=== PATIENT | male | born 1985 | race African-American/Black ===

== ENCOUNTER 2024-09-05 07:47 | Inpatient (IN) ==
--- NOTE | 2024-09-05 08:05 | Emergency Department Note ---
Impression & Plan Acute hypoxic respiratory failure, Asthma exacerbation, Rhinovirus ED Provider Note NAME: JOSESITO CALL AGE: 39 SEX: M : 1985 ARRIVES VIA: Walk-In INFORMANT: Patient ED PROVIDER(S): Erik Suarez DO CHIEF COMPLAINT: Short of breath HPI: Patient is a 39-year-old male who presents to the ER for shortness of breath. Symptoms started yesterday and have been getting worse. He has a history of asthma. He believes it is secondary to exposure to cats. He does admit to cough and congestion. Denies any belly pain, nausea, vomiting, or diarrhea. No chest pain. No dysuria, urgency, or frequency. No other exacerbating or remitting factors. ADDITIONAL HISTORY OBTAINED: Per HPI Chronic Medical/Social Conditions Affecting Care: Per HPI PAST MEDICAL HISTORY:See Below PAST SURGICAL HISTORY:See Below FAMILY HISTORY:See Below SOCIAL HISTORY:See Below HOME MEDICATIONS:See Below ALLERGIES:See Below VITALS:See Below PHYSICAL EXAMINATION: GENERAL: Sitting up in bed, alert, ill-appearing, moderate distress only able to talk in one-word sentences EYE EXAM: normal conjunctiva. PERRL and EOM's grossly intact. OROPHARYNX: mucous membranes are moist NECK: supple, no nuchal rigidity, no adenopathy, non-tender LUNGS: Diffuse wheezing bilaterally. Normal chest wall mechanics HEART: no murmurs, S1 normal and S2 normal ABDOMEN: abdomen soft, non-tender, normo-active bowel sounds, no masses, no rebound or guarding. UPPER EXTREMITIES: upper extremities are grossly normal. LOWER EXTREMITIES: No pitting edema. Calves are equal bilateral NEURO EXAM: Normal sensorium, cranial nerves II-XII grossly intact, normal speech, no gross weakness of arms, no gross weakness of legs. MEDICAL DECISION MAKING: Patient is a 39-year-old male who presents to the ER for the specific complaints. IV was established and blood work was obtained. Labs show no significant leukocytosis. No anemia. BMP along with LFTs bilirubin was unremarkable. Lipase was normal. Viral panel was positive for enterovirus. Patient upon arrival did have diffuse wheezing and poor air movement. He could only speak in 1 word sentence. Patient was given an hour-long DuoNeb and switched to an hour-long albuterol. Was given steroids. Had significant improvement and was able to talk full sentences. Was hypoxic initially and did require 2 L persistently. Patient was updated bedside discussed with the hospitalist admitted for further workup. Consults/Care Managements Discussions: Per MDM Triage Nursing notes reviewed. Limited review of prior medical records performed Vital Signs: reviewed and remarkable for HTN, tachy, hypoxic Differential diagnosis: Differential diagnoses includes but is not limited to pneumonia, bronchitis, COPD/Asthma exacerbation, pneumothorax, pulmonary embolism, congestive heart failure, acute coronary syndrome ER treatment provided: See below Diagnostics interpreted by me include EKG and cardiac monitoring as listed below: -Cardiac Monitoring: An order was placed for continuous cardiac monitoring. The monitor shows a rate of 120 with sinus rhythm. -ECG: Sinus tachycardia rate of 127 Normal axis No PVCs QTc 424 -Laboratory studies:Interpreted by me as stated above in MDM and shown below. Imaging studies: Xrays: As interpreted by me: Portable AP upright 1 view of the chest shows no focal infiltrate CTs show: none Procedures:none Critical Care: I have personally spent 35 minutes of critical care time in the direct management of this patient. This includes bedside care, interpretation of diagnostic studies, and testing, discussion with consultants, patient, and family members, and other required patient management activities. This 35 minutes is in excess of all separately billable procedures. Past Med/Surg History Problem List (Updated 09/05/24 @ 13:31 by Erik Suarez DO) Rhinovirus (Acute) Acute hypoxic respiratory failure (Acute) Hypoxia Tobacco use Upper respiratory infection, viral Asthma exacerbation (Acute) Medical History (Updated 09/05/24 @ 13:31 by Erik Suarez DO) Asthma Pneumonia Family History (Updated 09/05/24 @ 10:41 by MILTON Galicia) Mother Breast cancer Father Alzheimer disease Social History (Updated 09/05/24 @ 10:42 by MILTON Galicia) Smoking Status: Current every day smoker Tobacco Type: Cigarettes Cigarettes Per Day: 3; Hx Alcohol Use: Yes Hx Substance Use: No Preferred Language: Yi current occupational status: employed Feels Safe at Home: Yes Allergies Allergies Allergy/AdvReac Type Severity Reaction Status Date / Time iodine Allergy Intermediate Unknown Verified 09/05/24 11:47 shellfish derived Allergy Intermediate Unknown Verified 09/05/24 11:48 Home Meds Home Medications Medication Instructions Recorded Confirmed acetaminophen 500 mg tablet 1,000 mg PO Q6H PRN Pain 05/16/18 09/05/24 (Tylenol Extra Strength) Results & Data (ED) Vital Signs Vital Signs - 24 hr 09/05/24 07:49 09/05/24 07:55 09/05/24 08:04 Temperature 36.7 C Temperature Source Temporal Artery Scan Pulse Rate 129 H Pulse Rate [Apical] Pulse Rate from SpO2 Sensor Respiratory Rate 24 Respiratory Effort / Characteristics Short of Breath Spontaneous Labored Short of Breath Blood Pressure 158/115 H 151/125 H Blood Pressure Mean 129 130 Pulse Oximetry 87 L Oxygen Delivery Method Room Air Oxygen Flow Rate Sepsis Recent Fever Within 48 Hours No Sepsis New/Unexplained Change in Mental Status N/A Sepsis Action Taken by Nursing No Action Required Oxygen Flow Rate - Titration Pulse Oximetry Post Tiitration 09/05/24 08:06 09/05/24 08:30 09/05/24 08:36 Temperature Temperature Source Pulse Rate 127 H 117 H Pulse Rate [Apical] Pulse Rate from SpO2 Sensor 118 H Respiratory Rate 26 H 29 H Respiratory Effort / Characteristics Blood Pressure 141/110 H Blood Pressure Mean 119 Pulse Oximetry 96 Oxygen Delivery Method Nebulizer Oxygen Flow Rate Sepsis Recent Fever Within 48 Hours Sepsis New/Unexplained Change in Mental Status Sepsis Action Taken by Nursing Oxygen Flow Rate - Titration Pulse Oximetry Post Tiitration 09/05/24 08:53 09/05/24 09:00 09/05/24 09:03 Temperature Temperature Source Pulse Rate 123 H 119 H Pulse Rate [Apical] Pulse Rate from SpO2 Sensor 119 H Respiratory Rate 22 Respiratory Effort / Characteristics Blood Pressure 127/98 Blood Pressure Mean 110 Pulse Oximetry 97 Oxygen Delivery Method Nebulizer Oxygen Flow Rate Sepsis Recent Fever Within 48 Hours Sepsis New/Unexplained Change in Mental Status Sepsis Action Taken by Nursing Oxygen Flow Rate - Titration Pulse Oximetry Post Tiitration 09/05/24 09:12 09/05/24 09:20 09/05/24 09:49 Temperature Temperature Source Pulse Rate 126 H Pulse Rate [Apical] 118 H Pulse Rate from SpO2 Sensor 126 H Respiratory Rate 22 22 Respiratory Effort / Characteristics Spontaneous Blood Pressure Blood Pressure Mean Pulse Oximetry 92 88 L 92 Oxygen Delivery Method Room Air Room Air Nasal Cannula Oxygen Flow Rate 3 Sepsis Recent Fever Within 48 Hours Sepsis New/Unexplained Change in Mental Status Sepsis Action Taken by Nursing Oxygen Flow Rate - Titration 2 Pulse Oximetry Post Tiitration 92 Laboratory Data 09/05/24 08:15 09/05/24 08:15 Lab Results 09/05/24 09/05/24 Range/Units 08:15 08:45 WBC 12.38 H (4.8-10.8) K/ul RBC 4.52 L (4.70-6.10) M/uL Hgb 13.2 L (14.0-18.0) g/dl Hct 39.5 L (42.0-52.0) % MCV 87.4 (80.0-100.0) fL MCH 29.2 (25.0-34.0) pg MCHC 33.4 (32.0-36.0) g/dL RDW Std Deviation 45.4 (36.4-46.3) fL RDW Coeff of Syed 14.2 (11.5-14.5) % Plt Count 385 (130-400) K/uL MPV 8.6 L (9.4-12.4) fL Immature Gran % (Auto) 0.3 % Neut % (Auto) 80.8 % Lymph % (Auto) 11.6 % Hoke % (Auto) 5.3 % Eos % (Auto) 1.5 % Baso % (Auto) 0.5 % Neut # (Auto) 10.00 H (1.40-6.50) K/uL Lymph # (Auto) 1.44 (1.20-3.40) K/uL Hoke # (Auto) 0.66 H (0.11-0.59) K/uL Eos # (Auto) 0.18 (0.00-0.50) K/uL Baso # (Auto) 0.06 (0.00-0.20) K/uL Immature Gran # (Auto) 0.04 (0.01-0.20) K/uL Sodium 137 (136-145) mmol/L Potassium 4.3 (3.5-5.1) mmol/L Chloride 100 (98-107) mmol/L Carbon Dioxide 32 (21-32) mmol/L Anion Gap 5 (3-11) BUN 11 (6-23) mg/dl Creatinine 0.94 (0.6-1.4) mg/dl Est Cr Clr Drug Dosing Not Reportable eGFR 105.10 BUN/Creatinine Ratio 11.7 (10-20) Glucose 119 H (70-99(Fasting)) mg/dl Calcium 9.5 (8.6-10.3) mg/dl Total Bilirubin 0.4 (0.2-1.0) mg/dl AST 23 (13-39) U/L ALT 18 (7-52) U/L Alkaline Phosphatase 69 (34-104) U/L Troponin I High Sens 3.9 (0-20) pg/ml Total Protein 8.7 H (6.0-8.3) gm/dl Albumin 4.5 (3.4-5.0) gm/dl Globulin 4.2 H (2.5-4.0) gm/dl Albumin/Globulin Ratio 1.1 (0.9-2) Lipase 8 L (11-82) U/L Adenovirus (PCR) Not Detected (NotDetected) B. pertussis DNA (PCR) Not Detected (NotDetected) B.parapertussis DNA PCR Not Detected (NotDetected) C. pneumoniae DNA (PCR) Not Detected (NotDetected) Coronavirus OC43 (PCR) Not Detected (NotDetected) Coronavirus HKU1 (PCR) Not Detected (NotDetected) Coronavirus 229E (PCR) Not Detected (NotDetected) SARS-CoV-2 (PCR) Not Detected (NotDetected) Coronavirus NL63 (PCR) Not Detected (NotDetected) Human Metapneumovir PCR Not Detected (NotDetected) Influenza Type A (PCR) Not Detected (NotDetected) Influenza Type B (PCR) Not Detected (NotDetected) M. pneumoniae (PCR) Not Detected (NotDetected) Parainfluenza 1 (PCR) Not Detected (NotDetected) Parainfluenza 2 (PCR) Not Detected (NotDetected) Parainfluenza 3 (PCR) Not Detected (NotDetected) Parainfluenza 4 (PCR) Not Detected (NotDetected) RSV (PCR) Not Detected (NotDetected) Entero/Rhino (PCR) DETECTED A (NotDetected) Administered Medications Albuterol (Albut/Ipratrop 3mg/0.5mg Neb 3 Ml Vial) 3 ml NEB Q6R [facility]; Protocol Stop: 10/05/24 12:59 Last Admin: 09/05/24 12:38 Dose: 3 ml Documented By: AA Discontinued Medications Albuterol (Albut/Ipratrop 3mg/0.5mg Neb 3 Ml Vial) 9 ml NEB NOW STA; Protocol Stop: 09/05/24 08:03 Last Admin: 09/05/24 08:14 Dose: 9 ml Documented By: HECTOR Albuterol (Albuterol 0.083% Nebu Soln 3 Ml Vial) 10 mg NEB NOW STA; Protocol Stop: 09/05/24 09:35 Last Admin: 09/05/24 09:48 Dose: 10 mg Documented By: DANIEL Ioversol (Optiray 320 125ml) 112 ml IV ONCE ONE Stop: 09/05/24 10:24 Last Admin: 09/05/24 10:23 Dose: 112 ml Documented By: SHEA Methylprednisolone (Methylprednisolone 125 Mg/2 Ml Vial) 40 mg IV NOW STA Stop: 09/05/24 08:03 Last Admin: 09/05/24 08:15 Dose: 40 mg Documented By: HECTOR Imaging Data Radiologist's Impression: Chest X-Ray 09/05/24 08:02 XR chest 1V portable CLINICAL HISTORY: Chest pain, nonspecific COMPARISON STUDY: 05/16/2018 FINDINGS: Heart size and pulmonary vasculature are normal. No effusion, consolidation, or pneumothorax. IMPRESSION: No acute findings. ACT 112: Negative or not required by law. Electronically signed by: Getachew Campos M.D. 09/05/2024 9:00 AM Chest CTA 09/05/24 10:19 CT angio chest PE protocol CT DOSE: 1083.4 mGy.cm HISTORY: 39 years-old Male with PE. Acute shortness of breath with asthma TECHNIQUE: Multiple CTA images of the chest were obtained after the intravenous administration of 112 ml Optiray. Coronal and sagittal MIPS were obtained from the axial data set and were submitted for review. All measurements were obtained according to NASCET criteria. A dose lowering technique was utilized adhering to the principles of ALARA. COMPARISON: 05/16/2018 FINDINGS: CTA: Heart is normal in size. No pericardial effusion. Unremarkable thoracic aorta. There is suboptimal evaluation of the pulmonary arterial tree secondary to contrast bolus timing. No central pulmonary emboli identified. CT CHEST: No dominant thyroid nodule is seen. There are a few borderline-enlarged mediastinal and hilar lymph nodes including a 12 mm AP window lymph node on image 24 and a right hilar lymph node measuring 1.3 cm on image 173. Mild nonspecific bronchial wall thickening with a degree of bibasilar mucous plugging. There is a stable likely benign 3 mm subpleural nodular focus in the right lower lobe on image 139. A few additional scattered low suspicion. 2 to 3 mm nodular foci the lungs are stable and benign. There is no pneumothorax, pleural effusion or focal airspace consolidation. The imaged upper abdominal structures are normal. Probable hepatic steatosis. The osseous structures appear intact. IMPRESSION: 1. Limited study secondary to contrast bolus timing. No central pulmonary emboli identified. 2. No pleural effusion or airspace consolidation typical for pneumonia. 3. Mild nonspecific mediastinal and hilar lymphadenopathy. 4. Bronchial wall thickening with mild bibasilar plugging. ACT 112: Negative or not required by law. The above report was generated using voice recognition software. It may contain grammatical, syntax or spelling errors. Electronically signed by: Pawel Garvey M.D. 09/05/2024 12:42 PM Discharge Plan Visit Data Chief Complaint: Shortness of Breath/Dyspnea Stated Complaint: TROUBLE BREATHING/WALKING ED Provider: Erik Suarez Discharge Problem: Acute hypoxic respiratory failure, Asthma exacerbation, Rhinovirus Patient Disposition: Admitted As Inpatient Discharge Instructions Interventions: ED Discharge Assessment Last Done: 09/05/24 11:44 Discharge Problem: Asthma exacerbation Qualifiers: Asthma severity: unspecified severity Asthma persistence: unspecified Qualified Code(s): J45.901 - Unspecified asthma with (acute) exacerbation
[2024-09-05] MEDS: ALBUT/IPRATROP 3MG/0.5MG NEB 3 ML VIAL NEB STA (08:14)
[2024-09-05] MEDS: methylPREDNISolone 125 MG/2 ML VIAL IV STA (08:15)
[2024-09-05 08:54] LABS: Basophils # (auto) 0.06 K/uL (0.00-0.20); Basophils % (auto) 0.5 %; Eosinophils # (auto) 0.18 K/uL (0.00-0.50); Eosinophils % (auto) 1.5 %; Hematocrit (blood only) 39.5 % (42.0-52.0); Hemoglobin 13.2 g/dl (14.0-18.0); Immature Granulocytes # (auto) 0.04 K/uL (0.01-0.20); Immature Granulocytes % (auto) 0.3 %; Lymphocytes # (auto) 1.44 K/uL (1.20-3.40); Lymphocytes % (auto) 11.6 %; Mean Corpuscular Hemoglobin 29.2 pg (25.0-34.0); Mean Corpuscular Hgb Conc 33.4 g/dL (32.0-36.0); Mean Corpuscular Volume 87.4 fL (80.0-100.0); Mean Platelet Volume 8.6 fL (9.4-12.4); Monocytes # (auto) 0.66 K/uL (0.11-0.59); Monocytes % (auto) 5.3 %; Neutrophils % (auto) 80.8 %; Platelet Count 385 K/uL (130-400); RDW Coefficient of Variation 14.2 % (11.5-14.5); RDW Standard Deviation 45.4 fL (36.4-46.3); Red Blood Count 4.52 M/uL (4.70-6.10); White Blood Count 12.38 K/ul (4.8-10.8)
--- NOTE | 2024-09-05 09:01 | XRay Report ---
XR chest 1V portable CLINICAL HISTORY: Chest pain, nonspecific COMPARISON STUDY: 05/16/2018 FINDINGS: Heart size and pulmonary vasculature are normal. No effusion, consolidation, or pneumothora x. IMPRESSION: No acute findings. ACT 112: Negative or not required by law. Electronically signed by: Getachew Campos M.D. 09/05/2024 9:00 AM
[2024-09-05 09:13] LABS: Alanine Aminotransferase 18 U/L (7-52); Albumin Globulin Ratio 1.1 (0.9-2); Albumin Level 4.5 gm/dl (3.4-5.0); Alkaline Phosphatase 69 U/L (34-104); Anion Gap 5 (3-11); Aspartate Aminotransferase 23 U/L (13-39); BUN Creatinine Ratio 11.7 (10-20); Bilirubin,Total 0.4 mg/dl (0.2-1.0); Blood Urea Nitrogen 11 mg/dl (6-23); Calcium 9.5 mg/dl (8.6-10.3); Carbon Dioxide 32 mmol/L (21-32); Chloride 100 mmol/L (98-107); Globulin 4.2 gm/dl (2.5-4.0); Glucose 119 mg/dl (70-99(Fasting)); Lipase 8 U/L (11-82); Potassium 4.3 mmol/L (3.5-5.1); Sodium 137 mmol/L (136-145); Total Protein 8.7 gm/dl (6.0-8.3)
[2024-09-05 09:18] LABS: Troponin I High Sensitivity 3.9 pg/ml (0-20)
[2024-09-05] MEDS: ALBUTEROL 0.083% NEBU SOLN 3 ML VIAL NEB STA (09:48)
[2024-09-05 10:05] LABS: Adenovirus PCR Not Detected (NotDetected); Bordetella parapertussis PCR Not Detected (NotDetected); Bordetella pertussis PCR Not Detected (NotDetected); Chlamydia pneumoniae PCR Not Detected (NotDetected); Coronavirus 229E PCR Not Detected (NotDetected); Coronavirus CoV-2 (COVID19)PCR Not Detected (NotDetected); Coronavirus HKU1 PCR Not Detected (NotDetected); Coronavirus NL63 PCR Not Detected (NotDetected); Coronavirus OC43PCR Not Detected (NotDetected); Human Metapneumovirus PCR Not Detected (NotDetected); Influenza A PCR Not Detected (NotDetected); Influenza B PCR Not Detected (NotDetected); Mycoplasma pneumoniae PCR Not Detected (NotDetected); Parainfluenza Virus 1 PCR Not Detected (NotDetected); Parainfluenza Virus 2 PCR Not Detected (NotDetected); Parainfluenza Virus 3 PCR Not Detected (NotDetected); Parainfluenza Virus 4 PCR Not Detected (NotDetected); Respiratory Syncytial VirusPCR Not Detected (NotDetected); Rhinovirus/Enterovirus PCR DETECTED (NotDetected)
--- NOTE | 2024-09-05 10:12 | History & Physical Report ---
<Statement entered by Giorgio West DO - 09/05/24 12:57> I have seen and examined the patient and have discussed the case with the advance practice provider. I have reviewed the advanced practitioner's documentation, and I agree with, and take responsibility for that plan of care. Patient still in the ED when evaluated, significant other at bedside. Patient states that he has a remote history of asthma as a child. Does not have any significant symptoms with asthma recently. Does not carry on a rescue inhaler. Just had an upper respiratory infection a few weeks ago and did not have any issues with wheezing or chest tightness. Has not needed inhalers for a few years. Lungs decreased breath sounds, poor airflow, diffuse tight wheezes throughout with some coarse rhonchi. Patient with acute onset of pleuritic chest pain, shortness of breath, hypoxia and tachycardic in the setting of rhinovirus bronchitis and remote history of asthma. High suspicion for possible PE due to the fact that he has pleuritic pain and he has not had significant issues with his asthma in the past few years. Proceed with CTA of the chest Reviewed CTA report, negative for PE Continue with treatment for rhinovirus bronchitis with bronchospasm/exacerbation of asthma. Discussed plan of care as outlined below I spent a total of 21 minutes coordinating, documenting, and providing care for this patient excluding time spent by another provider/QHP. Date of Service September 05, 2024 Assessment & Plan (1) Hypoxia: (2) Asthma exacerbation: (3) Upper respiratory infection, viral: (4) Tobacco use: Plan 39 year old male with PMH of childhood asthma and current tobacco use who presented to the ED today with SOB. Hypoxia Asthma exacerbation secondary to viral URI Initial O2 sats 87% on RA Biofire positive for entero/rhinovirus CXR negative Slight leukocytosis at 12.3 CT angio PE negative Plan -Continue O2 as needed to maintain sats >92% -Duonebs q6hr scheduled -Albuterol nebs q2hr PRN for SOB -Mucinex, tessalon perle, hycodan PRN for cough Tobacco use Declined nicotine patch Counseled on smoking cessation DVT Prophylaxis: TEDs Code Status: FULL CODE - As per discussion at bedside with the patient. PCP: Dr Janice Blackman DO Disposition: admit to med/surg with tele Patient seen in collaboration with Dr West. Please see addendum. I spent a total of 60 minutes coordinating, documenting and providing care for this patient excluding time spent in the performance of separately billed services or time spent by another provider/QHP. Admission and Anticipated Discharge Date Admission Date: 09/05/2024 History of Present Illness Chief Complaint: SOB Primary Care Provider: Dr Janice Blackman DO 39 year old male with PMH of asthma in childhood and current tobacco use who presented to the ED today with SOB. He reports that he started to have profound SOB late in the day yesterday where he could barely stand or walk. He reports pleuritic chest pain and orthopnea where he sat upright in bed most of the night and couldn't sleep. He notes it took everything out of him to walk to the bathroom and back to bed. He reports a slightly productive cough with green sputum that also started yesterday but denies fevers, chills, runny nose, sore throat, abdominal pain, N/V/D, calf tenderness. 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 His girlfriend has a cat but he has never had issues being around the cat and he has hardly been outside due to the rainy weather. He reports no family history of any heart, lung, or bleeding/clotting disorders. He notes that he had asthma as a child but this has not been a problem for him in many years. He does not carry an inhaler and does not take any medications on a regular basis. He smokes cigarettes but is currently cutting back and is down to approximately 3 cigarettes per day. He consumes alcohol socially about once a week and denies any drug use. Allergies Allergy/AdvReac Type Severity Reaction Status Date / Time iodine Allergy Intermediate Unknown Verified 09/05/24 11:47 shellfish derived Allergy Intermediate Unknown Verified 09/05/24 11:48 Home Medications Medication Instructions Recorded Confirmed Type acetaminophen 500 mg tablet 1,000 mg PO Q6H PRN Pain 05/16/18 09/05/24 History (Tylenol Extra Strength) Past Med/Surg History Problem List (Updated 09/05/24 @ 10:40 by MILTON Galicia) Hypoxia Tobacco use Upper respiratory infection, viral Asthma exacerbation Medical History (Updated 09/05/24 @ 10:40 by MILTON Galicia) Asthma Pneumonia Family History (Updated 09/05/24 @ 10:41 by MILTON Galicia) Mother Breast cancer Father Alzheimer disease Social History (Updated 09/05/24 @ 10:42 by MILTON Galicia) Smoking Status: Current every day smoker Tobacco Type: Cigarettes Cigarettes Per Day: 3; Hx Alcohol Use: Yes Hx Substance Use: No Preferred Language: Maori current occupational status: employed Feels Safe at Home: Yes Review of Systems Review of Systems: All systems reviewed & are unremarkable except as noted in HPI & below Physical Exam Physical Exam: General/Psych: WD/WN, sitting up in bed, NAD, conversing with nebulized mask running, euthymic affect Head: normocephalic, atraumatic Eyes: normal inspection, PERRL, conjunctivae pink, anicteric sclerae ENT: external ear and nose normal, oropharynx normal Neck: normal visual inspection, trachea midline, no thyromegaly Respiratory: diminished lung sounds, bilateral inspiratory and expiratory wheeze s Cardiovascular: regular rate and rhythm, no murmur/rub/gallop, no JVD Extremities: no cyanosis or clubbing, normal peripheral pulses, no BLE edema Abdomen/GI: normal bowel sounds, soft, nontender, no hepatosplenomegaly Neurologic/MSK: A+Ox3, motor strength 5/5, moves all extremities Skin: no rashes, normal color, warm and dry Results & Data Results & Data Vital Signs (Past 12 Hours) Vital Signs Temp Pulse Pulse Resp BP Pulse Ox O2 Del Method 09/05/24 09:49 118 H 22 92 Nasal Cannula 09/05/24 09:20 88 L Room Air 09/05/24 09:12 126 H 22 92 Room Air 09/05/24 09:03 119 H 22 97 Nebulizer 09/05/24 09:00 127/98 09/05/24 08:53 123 H 09/05/24 08:36 117 H 29 H 96 Nebulizer 09/05/24 08:30 141/110 H 09/05/24 08:06 127 H 26 H 09/05/24 08:04 151/125 H 09/05/24 07:49 36.7 C 129 H 24 158/115 H 87 L Room Air O2 Flow Rate 09/05/24 09:49 3 09/05/24 09:20 09/05/24 09:12 09/05/24 09:03 04/15/25 09:00 09/05/24 08:53 09/05/24 08:36 09/05/24 08:30 09/05/24 08:06 09/05/24 08:04 09/05/24 07:49 Laboratory Results Short CBC 09/05/24 Range/Units 08:15 WBC 12.38 H (4.8-10.8) K/ul Hgb 13.2 L (14.0-18.0) g/dl Hct 39.5 L (42.0-52.0) % Plt Count 385 (130-400) K/uL BMP 09/05/24 08:15 Sodium 137 Potassium 4.3 Chloride 100 Carbon Dioxide 32 BUN 11 Creatinine 0.94 Glucose 119 H Calcium 9.5 Liver Function 09/05/24 Range/Units 08:15 Total Bilirubin 0.4 (0.2-1.0) mg/dl AST 23 (13-39) U/L ALT 18 (7-52) U/L Alkaline Phosphatase 69 (34-104) U/L Albumin 4.5 (3.4-5.0) gm/dl I have independently reviewed and interpreted patient's admitting labs including CBC, CMP, and troponin. Diagnostic Findings Chest X-Ray 09/05/24 08:02 XR chest 1V portable CLINICAL HISTORY: Chest pain, nonspecific COMPARISON STUDY: 05/16/2018 FINDINGS: Heart size and pulmonary vasculature are normal. No effusion, consolidation, or pneumothorax. IMPRESSION: No acute findings. ACT 112: Negative or not required by law. Electronically signed by: Getachew Campos M.D. 09/05/2024 9:00 AM
[2024-09-05] MEDS: OPTIRAY 320 125ml IV ONE (10:23)
[2024-09-05] MEDS ORDERED: IBUPROFEN 600 MG TAB PO PRN (11:38)
[2024-09-05] MEDS ORDERED: ACETAMINOPHEN 325 MG TAB PO PRN (11:43)
[2024-09-05] MEDS ORDERED: ALBUTEROL 0.5% NEB SOLN 2.5 MG/0.5 ML VIAL NEB PRN (11:43)
[2024-09-05] MEDS ORDERED: guaiFENesin 600 MG TABCR PO PRN (11:43)
[2024-09-05] MEDS ORDERED: HYDROcodone/HOMATROPINE SYRUP 5MG/1.5MG 5ML UDP PO PRN (11:43)
--- NOTE | 2024-09-05 11:48 | Electrocardiogram Report ---
Test Reason : Blood Pressure : */* mmHG Vent. Rate : 127 BPM Atrial Rate : 127 BPM P-R Int : 134 ms QRS Dur : 74 ms QT Int : 292 ms P-R-T Axes : 83 0 84 degrees QTcB Int : 424 ms Sinus tachycardia Biatrial enlargement Abnormal ECG When compared with ECG of 16-May-2018 00:47, No significant change was found Confirmed by Feroz Bloom ([id number]) on 09/05/2024 11:47:56 AM Referred By: Confirmed By: Feroz Bloom
[2024-09-05] MEDS: ALBUT/IPRATROP 3MG/0.5MG NEB 3 ML VIAL NEB SCH (12:38)
--- NOTE | 2024-09-05 12:44 | CT Scan Report ---
CT angio chest PE protocol CT DOSE: 1083.4 mGy.cm HISTORY: 39 years-old Male with PE. Acute shortness of breath with asthma TECHNIQUE: Multiple CTA images of the chest were obtained after the intravenous administration of 112 ml Optiray. Coronal and sagittal MIPS were obtained from the axial data set and were submitted for review. All measurements were obtained according to NASCET criteria. A dose lowering technique was u tilized adhering to the principles of ALARA. COMPARISON: 05/16/2018 FINDINGS: CTA: Heart is normal in size. No pericardial effusion. Unremarkable thoracic aorta. There is suboptimal ev aluation of the pulmonary arterial tree secondary to contrast bolus timing. No central pulmonary embo li identified. CT CHEST: No dominant thyroid nodule is seen. There are a few borderline-enlarged mediastinal and hilar lymph n odes including a 12 mm AP window lymph node on image 24 and a right hilar lymph node measuring 1.3 cm on image 173. Mild nonspecific bronchial wall thickening with a degree of bibasilar mucous plugging. There is a stable likely benign 3 mm subpleural nodular focus in the right lower lobe on image 139. A few additional scattered low suspicion. 2 to 3 mm nodular foci the lungs are stable and benign. The re is no pneumothorax, pleural effusion or focal airspace consolidation. The imaged upper abdominal structures are normal. Probable hepatic steatosis. The osseous structures appear intact. IMPRESSION: 1. Limited study secondary to contrast bolus timing. No central pulmonary emboli identified. 2. No pleural effusion or airspace consolidation typical for pneumonia. 3. Mild nonspecific mediastinal and hilar lymphadenopathy. 4. Bronchial wall thickening with mild bibasilar plugging. ACT 112: Negative or not required by law. The above report was generated using voice recognition software. It may contain grammatical, syntax o r spelling errors. Electronically signed by: Pawel Garvey M.D. 09/05/2024 12:42 PM
[2024-09-05] MEDS: BENZONATATE 100 MG CAPSULE PO PRN (20:59)
[2024-09-06 05:14] LABS: Hematocrit (blood only) 35.2 % (42.0-52.0); Hemoglobin 11.9 g/dl (14.0-18.0); Mean Corpuscular Hemoglobin 29.9 pg (25.0-34.0); Mean Corpuscular Hgb Conc 33.8 g/dL (32.0-36.0); Mean Corpuscular Volume 88.4 fL (80.0-100.0); Mean Platelet Volume 8.6 fL (9.4-12.4); Platelet Count 352 K/uL (130-400); RDW Coefficient of Variation 14.5 % (11.5-14.5); RDW Standard Deviation 46.8 fL (36.4-46.3); Red Blood Count 3.98 M/uL (4.70-6.10); White Blood Count 7.93 K/ul (4.8-10.8)
[2024-09-06 05:35] LABS: Potassium 3.7 mmol/L (3.5-5.1)
[2024-09-06 05:41] LABS: BUN Creatinine Ratio 13.6 (10-20); Creatinine Clr Calc Pharmacy 152.4 ml/min
[2024-09-06] MEDS: predniSONE 50 MG TAB PO SCH (08:40)
[2024-09-06] MEDS ORDERED: LEVALBUTEROL HCL 0.63 MG/3 ML NEB NEB PRN (13:15)
--- NOTE | 2024-09-06 13:25 | Hospitalist Progress Note ---
Date of Service September 06, 2024 Assessment & Plan (1) Acute hypoxic respiratory failure: (2) Asthma exacerbation: (3) Upper respiratory infection, viral: (4) Tobacco use: Plan 39 year old male with PMH of childhood asthma and current tobacco use who presented to the ED today with SOB. Acute respiratory failure with hypoxia 2/2 rhinovirus Asthma exacerbation with acute bronchitis secondary to viral URI Initial O2 sats 87% on RA Biofire positive for entero/rhinovirus CXR negative Slight leukocytosis at 12.3 CT angio PE negative, consistent with acute bronchitis Start prednisone 50mg daily x 5 days Switch to levalbuterol given tachycardia continue pulm toilet with muccinex, flutter valve, incentive spirometry Wean off O2 as able, goal O2 > 92% Sinus Tachycardia Suspect in setting of underlying illness, will trial switching from albuterol to levalbuterol monitor Tobacco use Declined nicotine patch Counseled on smoking cessation Hyperglycemia random bsg 160, will obtain a1c in a.m. likely in setting of steroids day prior DVT Prophylaxis: TEDs Code Status: FULL CODE - As per discussion at bedside with the patient. PCP: Dr Janice Blackman DO Disposition: admit to med/surg with tele, if pt remains stable can downgrade to medical tomorrow, pt not yet medically stable for discharge as he is still requiring oxygen I spent a total of 51 minutes coordinating, documenting and providing care for this patient excluding time spent in the performance of separately billed services or time spent by another provider/QHP. Admission and Anticipated Discharge Date Admission Date: September 05, 2024 Subjective Pt seen and examined in ED C12 as overnight hold. He continues to feel SOB, mostly with exertion. He is coughing, but now able to expectorate. He reports having allergies and he feels his sx are related to that along with the virus. He denies f/c/s, chest pain, n/v/d. He is tolerating diet. He reports intermittent smoking and states he will now be quitting after this. Review of Systems Review of Systems: All systems reviewed & are unremarkable except as noted in HPI & below Physical Exam Physical Exam: Gen: WD/WN, M, sitting up in bed, appears comfortable, NAD, A&O x3 HEENT: Normocephalic, atraumatic, conjunctivae moist, sclerae anicteric, mucous membranes moist. Lung: Clear to Auscultation bilaterally, with diffuse wheezing throughout, no rales/rhonchi, saturating 91% on RA at rest Heart: tachycardic rate, regular rhythm, no murmurs, rubs, or gallops Abdomen: Soft, NT, ND +BS x 4 Extremities: No edema Skin: Warm, no rash, negative turgor. Results & Data Results & Data Vital Signs (Past 12 Hours) Vital Signs Temp Pulse Pulse Resp BP Pulse Ox Pulse Ox 09/06/24 13:02 124 H 20 91 09/06/24 11:59 110 H 22 135/96 94 09/06/24 08:00 36.9 C 105 H 20 139/99 95 09/06/24 07:09 84 09/06/24 06:50 79 18 95 09/06/24 06:43 93 H 15 144/87 H 96 09/06/24 03:10 36.6 C 104 H 18 131/98 96 09/06/24 03:10 95 O2 Del Method O2 Del Method O2 Flow Rate O2 Flow Rate 09/06/24 13:02 Nasal Cannula 1 09/06/24 11:59 Nasal Cannula 2 09/06/24 08:00 Nasal Cannula 2 09/06/24 07:09 09/06/24 06:50 Room Air 09/06/24 06:43 Nasal Cannula 2 09/06/24 03:10 Nasal Cannula 2 09/06/24 03:10 Nasal Cannula 2 Laboratory Results Short CBC 09/06/24 Range/Units 04:07 WBC 7.93 (4.8-10.8) K/ul Hgb 11.9 L (14.0-18.0) g/dl Hct 35.2 L (42.0-52.0) % Plt Count 352 (130-400) K/uL BMP 09/06/24 04:07 Sodium 138 Potassium 3.7 Chloride 102 Carbon Dioxide 31 BUN 12 Creatinine 0.88 Glucose 117 H Calcium 9.0 I have independently reviewed and interpreted patient's cbc, bmp (2) Asthma exacerbation Asthma persistence: unspecified Asthma severity: unspecified severity Qualified Code(s): J45.901 - Unspecified asthma with (acute) exacerbation
[2024-09-06] MEDS: LEVALBUTEROL HCL 0.63 MG/3 ML NEB NEB SCH (16:06)
[2024-09-06] MEDS: LEVALBUTEROL 1.25 MG/3 ML NEB NEB SCH (16:06)
[2024-09-06] MEDS: HYDROcodone/HOMATROPINE SYRUP 5MG/1.5MG 5ML UDP PO PRN (19:57)
[2024-09-07 07:27] LABS: Calcium 8.7 mg/dl (8.6-10.3); Potassium 4.3 mmol/L (3.5-5.1)
[2024-09-07 07:32] LABS: BUN Creatinine Ratio 15.8 (10-20); Creatinine Clr Calc Pharmacy 141.2 ml/min
[2024-09-07 08:50] LABS: Estimated Average Glucose 134 mg/dl; Hemoglobin A1C 6.3 % (4.5-5.6)
--- NOTE | 2024-09-07 12:56 | Hospitalist Progress Note ---
<Statement entered by Giorgio West, - 09/07/24 15:13> I have seen and examined the patient and have discussed the case with the advance practice provider. I have reviewed the advanced practitioner's documentation, and I agree with, and take responsibility for that plan of care. Patient notices significant improvement overnight. Not nearly as dyspneic with activity. Lungs improved airflow, less wheezing Heart rate has significantly improved Patient severe asthma/bronchospasm has significantly improved. Continue to increase activity as tolerated, titrate oxygen off Discussed further plan of care as outlined below. I spent a total of 15 minutes coordinating, documenting, and providing care for this patient excluding time spent by another provider/QHP. Date of Service September 07, 2024 Assessment & Plan (1) Rhinovirus infection: (2) Asthma exacerbation: (3) Acute hypoxic respiratory failure: Plan: Tesfaye Wilson is a 39y/o M with PMHx significant for asthma, tobacco use disorder and prediabetes who presented to the ED on 09/05/24 with complaint of SOB and was found to be in acute hypoxic respiratory failure due to viral bronchitis in the setting of entero-/rhinovirus. On 2L NC during examination this morning with ultimate goal to wean off supplemental O2 today; 2-step test ordered. Labile tachycardia likely 2/2 nebs and deconditioning. Continue PRN levalbuterol nebs. Prednisone 40mg daily x 5 days with EOT on 09/10. Continue pulmonary toileting with Mucinex BID, ISP and flutter valve. Goal O2 sat = >92%. (4) Tobacco use: Plan: Declined need for nicotine patch. Continue counseling regarding smoking cessation. (5) Prediabetes: Plan: Hgb A1c 6.3% this admission. BSG checks stable. Encouraged to follow-up with his PCP regarding this. DVT Prophylaxis: TEDs, encourage ambulation around the unit. Code Status: FULL CODE PCP: Dr. Janice Blackman Disposition: Downgrade to med/surg - anticipate discharge home tomorrow. Weaning O2 as able. Patient seen in collaboration with Dr. West. Please see addendum. I spent a total of 35 minutes coordinating, documenting, and providing care for this patient excluding time spent in the performance of separately billed services or time spent by another provider/QHP. This included personally reviewing all current laboratories and imaging studies, medical reconciliation, outpatient chart review and discussion with specialists. This chart was completed in part utilizing Speech Voice Recognition Software. Grammatical errors, random word insertions, pronoun errors, and incomplete sentences are an occasional consequence of this system due to software limitations, ambient noise, and hardware issues. Any formal questions or concerns about the content, text, or information contained within the body of this dictation should be directly addressed to the provider for clarification. Admission and Anticipated Discharge Date Admission Date: September 05, 2024 Subjective Patient seen and examined in room W255-2. NAEO. On 2L NC with goal of weaning off supplemental O2 today - discussed in detail with the patient. Cough is now productive of yellow phlegm. Feels breathing has improved significa ntly. Denies any chest pain, abdominal pain or N/V. Educated on the importance of smoking cessation. Labile tachycardia noted; denies any palpitations. Moving his bowels routinely. No fevers or chills. Review of Systems Review of Systems: At least ten systems reviewed and negative, except as noted in the subjective section. Physical Exam Physical Exam: General: Middle-aged, M. Sitting up in bed. Very pleasant. A&Ox3. NAD. HEENT: Normocephalic, atraumatic. Conjunctivae normal. External ear and nose normal. Moist mucous membranes. Respiratory: Normal respiratory effort. Diffuse wheezing heard bilaterally. On 2L NC. No accessory muscle use. Cardiovascular: Regular rate and rhythm, normal peripheral pulses. No BLE edema. Vessels: No JVD. Abdomen/GI: Normal bowel sounds, soft. Nondistended, nontender to palpation in all quadrants. Extremities/Musculoskeletal: No cyanosis or clubbing, extremities motor strength intact, moves all extremities. Neurologic: No overt focal deficits, CN's II-XI not formally tested but appear grossly intact bilaterally. Results & Data Results & Data Vital Signs (Past 12 Hours) Vital Signs Temp Pulse Pulse Resp BP Pulse Ox O2 Del Method 09/07/24 11:44 36.8 C 80 18 132/87 95 Room Air 09/07/24 09:19 Nasal Cannula 09/07/24 08:40 36.6 C 84 18 129/86 92 Nasal Cannula 09/07/24 07:23 68 18 96 Nasal Cannula 09/07/24 07:06 80 09/07/24 04:10 36.6 C 90 18 136/84 96 Nasal Cannula O2 Flow Rate 09/07/24 11:44 09/07/24 09:19 2 09/07/24 08:40 2 09/07/24 07:23 2 09/07/24 07:06 09/07/24 04:10 2 Laboratory Results BMP 09/07/24 06:24 Sodium 140 Potassium 4.3 Chloride 105 Carbon Dioxide 30 BUN 15 Creatinine 0.95 Glucose 91 Calcium 8.7 (2) Asthma exacerbation Asthma persistence: unspecified Asthma severity: unspecified severity Qualified Code(s): J45.901 - Unspecified asthma with (acute) exacerbation
[2024-09-08 07:18] VITALS: BP 145/92; RESP 18; TEMP 98.2
[2024-09-08 07:27] VITALS: O2SAT 95
[2024-09-08 07:36] LABS: Hematocrit (blood only) 35.8 % (42.0-52.0); Hemoglobin 12.2 g/dl (14.0-18.0); Mean Corpuscular Hemoglobin 30.3 pg (25.0-34.0); Mean Corpuscular Hgb Conc 34.1 g/dL (32.0-36.0); Mean Corpuscular Volume 88.8 fL (80.0-100.0); Mean Platelet Volume 8.4 fL (9.4-12.4); Platelet Count 343 K/uL (130-400); RDW Coefficient of Variation 14.4 % (11.5-14.5); RDW Standard Deviation 46.5 fL (36.4-46.3); Red Blood Count 4.03 M/uL (4.70-6.10); White Blood Count 8.47 K/ul (4.8-10.8)
--- NOTE | 2024-09-08 07:54 | Discharge Summary ---
<Statement entered by Giorgio West, - 09/08/24 12:39> I have seen and examined the patient and have discussed the case with the advance practice provider. I have reviewed the advanced practitioner's documentation, and I agree with, and take responsibility for that plan of care. Patient feeling significantly improved. Feels ready to go home. Lungs: Significantly improved airflow, rare wheeze. Discussed discharge plans as outlined below I spent a total of 12 minutes coordinating, documenting, and providing care for this patient excluding time spent by another provider/QHP. Discharge Summary Date of Service September 08, 2024 Principal Dx & Hospital Course #1 = Principal Diagnosis (1) Rhinovirus infection: (2) Asthma exacerbation: (3) Acute hypoxic respiratory failure: Tesfaye Wilson is a 39y/o M with PMHx significant for asthma, tobacco use disorder and prediabetes who presented to the ED on 09/05/24 with complaint of SOB and was found to be in acute hypoxic respiratory failure due to viral bronchitis in the setting of entero-/rhinovirus. Initially on 2L NC. Passed 2-step test; now off supplemental O2 entirely and remains saturating well on RA. Labile tachycardia likely 2/2 nebs and deconditioning - now improved. Continue prednisone 40mg daily x 5 days with EOT on 09/10. (4) Tobacco use: Counseled on the importance of smoking cessation. (5) Prediabetes: Hgb A1c 6.3% this admission. BSG checks stable. Encouraged to follow-up with his PCP regarding this. PCP: Dr. Janice Blackman Disposition: Patient is being discharged home in good condition with close outpatient PCP follow-up. Patient seen in collaboration with Dr. Wset. Please see addendum. I spent a total of 45 minutes coordinating, documenting, and providing care for this patient excluding time spent in the performance of separately billed services or time spent by another provider/QHP. This included personally reviewing all current laboratories and imaging studies, medical reconciliation, outpatient chart review and discussion with specialists. This chart was completed in part utilizing Speech Voice Recognition Software. Grammatical errors, random word insertions, pronoun errors, and incomplete sentences are an occasional consequence of this system due to software limitations, ambient noise, and hardware issues. Any formal questions or concerns about the content, text, or information contained within the body of this dictation should be directly addressed to the provider for clarification. Notes For Next Care Provider Recommend outpatient PFT testing. Would also benefit from outpatient allergy testing for possible asthma triggers. Medication Changes From Visit Prednisone 50mg daily x 2 more days Admission HPI Per Admitting Provider 39 year old male with PMH of asthma in childhood and current tobacco use who presented to the ED today with SOB. He reports that he started to have profound SOB late in the day yesterday where he could barely stand or walk. He reports pleuritic chest pain and orthopnea where he sat upright in bed most of the night and couldn't sleep. He notes it took everything out of him to walk to the bathroom and back to bed. He reports a slightly productive cough with green sputum that also started yesterday but denies fevers, chills, runny nose, sore throat, abdominal pain, N/V/D, calf tenderness. 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 His girlfriend has a cat but he has never had issues being around the cat and he has hardly been outside due to the rainy weather. He reports no family history of any heart, lung, or bleeding/clotting disorders. He notes that he had asthma as a child but this has not been a problem for him in many years. He does not carry an inhaler and does not take any medications on a regular basis. He smokes cigarettes but is currently cutting back and is down to approximately 3 cigarettes per day. He consumes alcohol socially about once a week and denies any drug use. Admission Exam Per Admitting Provider General/Psych: WD/WN, sitting up in bed, NAD, conversing with nebulized mask running, euthymic affect Head: normocephalic, atraumatic Eyes: normal inspection, PERRL, conjunctivae pink, anicteric sclerae ENT: external ear and nose normal, oropharynx normal Neck: normal visual inspection, trachea midline, no thyromegaly Respiratory: diminished lung sounds, bilateral inspiratory and expiratory wheezes Cardiovascular: regular rate and rhythm, no murmur/rub/gallop, no JVD Extremities: no cyanosis or clubbing, normal peripheral pulses, no BLE edema Abdomen/GI: normal bowel sounds, soft, nontender, no hepatosplenomegaly Neurologic/MSK: A+Ox3, motor strength 5/5, moves all extremities Skin: no rashes, normal color, warm and dry Discharge Exam General: Middle-aged, M. Sitting up in bed. Very pleasant. A&Ox3. NAD. HEENT: Normocephalic, atraumatic. Conjunctivae normal. External ear and nose normal. Moist mucous membranes. Respiratory: Normal respiratory effort. Wheezing still present but significantly improved bilaterally. No accessory muscle use. Cardiovascular: Regular rate and rhythm, normal peripheral pulses. No BLE edema. Vessels: No JVD. Abdomen/GI: Normal bowel sounds, soft. Nondistended, nontender to palpation in all quadrants. Extremities/Musculoskeletal: No cyanosis or clubbing, extremities motor strength intact, moves all extremities. Neurologic: No overt focal deficits, CN's II-XI not formally tested but appear grossly intact bilaterally. Updated Medication List Medication Instructions Recorded Confirmed Type acetaminophen 500 mg tablet 1,000 mg PO Q6H PRN Pain 05/16/18 09/05/24 History (Tylenol Extra Strength) albuterol sulfate 90 mcg/actuation 1 inh inhalation Q4H PRN shortness 09/08/24 Rx aerosol inhaler of breath or wheezing #8.5 grams prednisone 50 mg tablet 50 mg PO DAILY #2 tabs 09/08/24 Rx Hospital Stay Data Consultations 09/05/24 09:44 ED Decision to Admit Stat Diagnostic Imagining Performed 09/05/24 10:19 CT angio chest PE protocol Stat Discharge Instructions Given to Patient (Per Discharging Provider) sj Lucero were admitted to [facility] due to acute hypoxic respiratory failure in the setting of rhinovirus infection. You have been successfully weaned off of supplemental oxygen. A prescription for prednisone, which is a corticosteroid used to reduce inflammation in the airways, has been sent to [facility] at [address] [place] [address] Place here in [place] - you are set to complete 2 more days of this medication beginning TOMORROW morning. RECOMMENDATIONS FOR FOLLOW-UP Please attend your PCP follow-up appointment as outlined below. Date & Time: 09/11/2024 @ 2:00 PM Provider: Naman Aggarwal MD Location: Family Practice @ [facility] Seek medical attention if you have: * temperature above 101F * chest pain or trouble breathing * abdominal pain, nausea, vomiting * diarrhea, dark stools or bloody stools * any unanswered questions or concerns Call 911 if symptoms are severe. Please take good care of yourself. It has been a pleasure taking care of you. If you have any questions regarding your recent hospitalization please contact [facility] and request Michelle Fleming @ [phone]. Total Time Total Time Spent Total Time Spent (In Minutes): 45
[2024-09-08 08:00] LABS: BUN Creatinine Ratio 17.2 (10-20); Calcium 8.6 mg/dl (8.6-10.3); Creatinine Clr Calc Pharmacy 154.2 ml/min; Magnesium 2.1 mg/dl (1.7-2.4); Potassium 3.9 mmol/L (3.5-5.1)
[2024-09-08 10:31] VITALS: PULSE 124
== END 2024-09-08 10:55 | disposition home or self-care (01) | DRG 189 ==
LOC: ED 07:47 → EDINP 10:30 → 2W 09-06 11:44